=== PATIENT | male | born 1950 | race Caucasian/White ===

== ENCOUNTER 2017-09-04 16:08 | Emergency (ER) | payer OTHER ==
[~2017-09-04] VITALS: Ht 170.2 cm; Wt 90.0 kg
[~2017-09-04 16:08] MED LIST: ALPR0.5T3 PO; ASPI81 PO; CARV3.12 PO; DIGO0.12 PO; FURO20 PO; K-TA10TA5 PO; LISI-360 PO; LOVA10TA PO; PERC10TA27 PO
[2017-09-04 16:10] VITALS: BP 134/76; PULSE 89; RESP 18; TEMP 97.8; O2SAT 95
[2017-09-04] MEDS ORDERED: LISI-519 PO (17:18)
[2017-09-04] MEDS ORDERED: ASPI81CH6 CHEW (17:18)
[2017-09-04] MEDS ORDERED: ALPR.5 PO (17:18)
[2017-09-04] MEDS ORDERED: APIX5TAB PO (17:18)
[2017-09-04] MEDS ORDERED: ALLO100T PO (17:18)
[2017-09-04] MEDS ORDERED: K-TA10TA PO (17:18)
[2017-09-04] MEDS ORDERED: LOVA10TA PO (17:18)
[2017-09-04] MEDS ORDERED: DIGO0.12 PO (17:18)
[2017-09-04] MEDS ORDERED: PERC10TA27 PO (17:18)
[2017-09-04] MEDS ORDERED: FURO1TAB62 PO (17:18)
[2017-09-04] MEDS ORDERED: CARV3.125 PO (17:18)
[2017-09-04] MEDS ORDERED: SODIUM CHLORIDE 0.9% FLUSH 10 ML FLUSH IVF PRN (17:30)
[2017-09-04 17:39] LABS: AUTOMATED NEUTROPHIL # 6.9 TH/MM3 (1.8-7.7); BASOPHIL % 0.5 % (0.0-2.0); EOSINOPHIL # 0.3 TH/MM3 (0-0.4); EOSINOPHIL % 2.7 % (0.0-4.0); HEMATOCRIT 40.2 % (39.0-51.0); HEMO FLAGS DIFF FINAL; LYMPH % 19.1 % (9.0-44.0); LYMPHOCYTE # 1.9 TH/MM3 (1.0-4.8); MEAN CORPUSCULAR HEMOGLOBIN 30.6 PG (27.0-34.0); MEAN CORPUSCULAR HGB CONC 34.4 % (32.0-36.0); NEUT % 69.7 % (16.0-70.0); PLATELET COUNT 170 TH/MM3 (150-450); RED BLOOD COUNT 4.52 MIL/MM3 (4.50-5.90); RED CELL DISTRIBUTION WIDTH 13.9 % (11.6-17.2); WHITE BLOOD COUNT 9.9 TH/MM3 (4.0-11.0)
[2017-09-04 17:46] LABS: APTT (PATIENT) 26.4 SEC (24.3-30.1)
[2017-09-04 17:55] LABS: ANION GAP 9 MEQ/L (5-15); BICARBONATE 27.3 MEQ/L (21.0-32.0); BLOOD UREA NITROGEN 28 MG/DL (7-18); CHLORIDE 102 MEQ/L (98-107); GLOMERULAR FILTRATION RATE 45 ML/MIN (>89); MAGNESIUM 2.7 MG/DL (1.5-2.5); POTASSIUM 4.4 MEQ/L (3.5-5.1); SODIUM (NA) 138 MEQ/L (136-145)
[2017-09-04 17:59] LABS: CREATINE KINASE 142 U/L (39-308)
[2017-09-04 18:11] LABS: CKMB 2.4 NG/ML (0.5-3.6)
--- NOTE | 2017-09-04 18:18 | RADRPT ---
EXAM DATE/TIME: 09/04/2017 17:55 [place] COMPARISON: CHEST SINGLE AP, December 09, 2015, 13:03. INDICATIONS : Chest pain since this afternoon. MEDICAL HISTORY : None. SURGICAL HISTORY : CABG. ENCOUNTER: Initial ACUITY: 1 day PAIN SCORE: 2/10 LOCATION: Bilateral chest FINDINGS: A single AP portable erect view of the chest demonstrates the lungs to be symmetrically aerated witho ut evidence of mass, infiltrate or effusion. The cardiomediastinal contours are unremarkable. [place] us structures are intact. The left subclavian AV sequential transvenous pacer remains in place with t he defibrillator lead. The patient is again noted to be status post median sternotomy. CONCLUSION: Stable appearance with no acute cardiopulmonary disease. James Lobo MD on September 04, 2017 at 18:15 Board Certified Radiologist. This report was verified electronically.
--- NOTE | 2017-09-04 19:35 | PD ---
Physical Exam Narrative Received sign out to follow up [employer] interrogation of defibrillator. 66yo M with ischemic heart disease s/p AICD came to ED for evaluation after AICD firing while fishing today. Pt denies any chest pain, sob, n/v, abdominal pain, focal weakness or numbness. Pt has been observed in the ED without any symptoms. Labs reviewed, no leukocytosis. H/H normal. Troponin negative. Magnesium 2.7. K: 4.4. BUN/creatinine elevated but at baseline. [employer] came to interrogate the AICD and found that it fired appropriately because he had an episode of tachycardia at 261bpm. I discussed with classifier tender Dr. Powell who is covering Dr. Manuel and he agrees that pt can follow up with Dr. Manuel's office tomorrow. Return precautions given. Data Data Last Documented VS Vital Signs Date Time Temp Pulse Resp B/P (MAP) Pulse Ox O2 Delivery O2 Flow Rate FiO2 09/04/17 21:06 09/04/17 17:39 Room Air 09/04/17 16:10 97.8 89 18 95 Orders Orders Electrocardiogram (09/04/17 ) Basic Metabolic Panel (Bmp) (09/04/17 17:19) Ckmb (Isoenzyme) Profile (09/04/17 17:19) Complete Blood Count With Diff (09/04/17 17:19) Magnesium (Mg) (09/04/17 17:19) Prothrombin Time / Inr (Pt) (09/04/17 17:19) Act Partial Throm Time (Ptt) (09/04/17 17:19) Troponin I (09/04/17 17:19) Chest, Single Ap (09/04/17 17:19) Ecg Monitoring (09/04/17 17:19) Bilateral Bp Monitoring (09/04/17 17:19) Iv Access Insert/Monitor (09/04/17 17:19) Oximetry (09/04/17 17:19) Oxygen Administration (09/04/17 17:19) Sodium Chloride 0.9% Flush (Ns Flush) (09/04/17 17:30) CKMB (09/04/17 17:25) CKMB% (09/04/17 17:25) Ed Discharge Order (09/04/17 20:38) Labs Laboratory Tests Test 09/04/17 17:25 White Blood Count 9.9 TH/MM3 Red Blood Count 4.52 MIL/MM3 Hemoglobin 13.8 GM/DL Hematocrit 40.2 % Mean Corpuscular Volume 89.0 FL Mean Corpuscular Hemoglobin 30.6 PG Mean Corpuscular Hemoglobin Concent 34.4 % Red Cell Distribution Width 13.9 % Platelet Count 170 TH/MM3 Mean Platelet Volume 9.2 FL Neutrophils (%) (Auto) 69.7 % Lymphocytes (%) (Auto) 19.1 % Monocytes (%) (Auto) 8.0 % Eosinophils (%) (Auto) 2.7 % Basophils (%) (Auto) 0.5 % Neutrophils # (Auto) 6.9 TH/MM3 Lymphocytes # (Auto) 1.9 TH/MM3 Monocytes # (Auto) 0.8 TH/MM3 Eosinophils # (Auto) 0.3 TH/MM3 Basophils # (Auto) 0.0 TH/MM3 CBC Comment DIFF FINAL Differential Comment Prothrombin Time 11.0 SEC Prothromb Time International Ratio 1.0 RATIO Activated Partial Thromboplast Time 26.4 SEC Blood Urea Nitrogen 28 MG/DL Creatinine 1.55 MG/DL Random Glucose 83 MG/DL Calcium Level 8.9 MG/DL Magnesium Level 2.7 MG/DL Sodium Level 138 MEQ/L Potassium Level 4.4 MEQ/L Chloride Level 102 MEQ/L Carbon Dioxide Level 27.3 MEQ/L Anion Gap 9 MEQ/L Estimat Glomerular Filtration Rate 45 ML/MIN Total Creatine Kinase 142 U/L Creatine Kinase MB 2.4 NG/ML Troponin I 0.05 NG/ML [facility] Supervised Visit with MARQUISE: No Diagnosis Primary Impression: AICD discharge Patient Instructions: General Instructions Departure Forms: Tests/Procedures Additional Instruction: Please follow up with Dr. Manuel's office tomorrow. Return to the ED if symptoms worsen. Med/Other Pt SpecificInfo: No Change to Meds Disposition: 01 DISCHARGE HOME Condition: Stable Waleska Carcamo Sep 04, 2017 19:35
--- NOTE | 2017-09-04 19:45 | PD ---
HPI Chief Complaint: Cardiac Complaint Time Seen by Provider: 17:09 Travel History International Travel<30 days: No Contact w/Intl Traveler<30days: No Traveled to known affect area: No History of Present Illness HPI 66-year-old male came to the emergency room with history of his AICD firing. Patient says this happened at around 2:30 this evening. Patient was fishing [place] the ocean when this happened. He fell on the deck of his boat. He did not lose consciousness. His was there as well. As per her his color was little pale. Patient does not feel this coming. No history of chest pain. Patient says that he has this defibrillator placed in 2011. He had been shocked once before in December 2015. He went to see his behavioral specialist [place]. But his behavioral specialist was out of town and his PA recommended that she should go to the emergency room. Currently patient is feeling okay. He knows that he has a weak heart. Vital signs are stable. [facility] Past Medical History Narrative Medical List of his past medical, surgical, social and family history is reviewed from the nursing note. Autoimmune Disease: No Blood Disorders: No Anxiety: Yes Depression: No Cancer: Yes (COLON) Cardiac Catheterization: Yes Cardiomyopathy: Yes (EF 30%) Cardiovascular Problems: Yes High Cholesterol: Yes Chest Pain: Yes Coronary Artery Disease: Yes Diabetes: No Diminished Hearing: No Endocrine: No Gastrointestinal Disorders: Yes (COLON CANCER) Glaucoma: No Genitourinary: No Hepatitis: No Hiatal Hernia: No Hypertension: Yes Immune Disorder: No Musculoskeletal: Yes Neurologic: No Psychiatric: Yes (PTSD - [facility]) Reproductive: No Respiratory: No Integumentary: No Immunizations Current: Yes Myocardial Infarction: Yes Thyroid Disease: No Triglycerides - High: Yes PNEUMOCCOCAL Vaccine (Year): 2 Past Surgical History Abdominal Surgery: Yes ([facility]ON RESECTION) Cardiac Surgery: Yes Coronary Artery Bypass Graft: Yes (PT HAS EF OF 30%) Coronary Stent: Yes Genitourinary Surgery: No Thoracic Surgery: Yes Other Surgery: Yes Social History Alcohol Use: No Tobacco Use: No Substance Use: No Allergies-Medications (Allergen,Severity, Reaction): Coded Allergies: No Known Allergies (Verified , 06/10/15) Comments No known drug allergies. Reported Meds & Prescriptions Reported Meds & Active Scripts Active Reported Percocet (Oxycodone-Acetaminophen) 10-325 mg Tab 1 Tab PO Q6H PRN Xanax (Alprazolam) 0.5 Mg Tab 0.5 Mg PO Q6H PRN K-Tab (Potassium Chloride) 10 Meq Tab 10 Meq PO DAILY Eliquis (Apixaban) Unknown Strength Tab Unknown Dose PO BID Lovastatin 10 Mg Tab 10 Mg PO DAILY Lisinopril 5 Mg Tab 5 Mg PO DAILY Lasix (Furosemide) 20 Mg Tab 10 Mg PO DAILY Allopurinol 100 Mg Tab 100 Mg PO DAILY Digoxin 0.125 Mg Tab 0.125 Mg PO DAILY Coreg (Carvedilol) 3.125 Mg Tab 3.125 Mg PO BID Aspirin Low Dose (Aspirin) 81 Mg Chew 81 Mg CHEW DAILY Narrative Medication List of his home medications reviewed from the nursing note. Review of Systems Except as stated in HPI: all other systems reviewed are Neg Physical Exam Narrative GENERAL: Awake, alert, anxious SKIN: Focused skin assessment warm/dry. HEAD: Atraumatic. Normocephalic. EYES: Pupils equal and round. No scleral icterus. No injection or drainage. ENT: No nasal bleeding or discharge. Mucous membranes pink and moist. NECK: Trachea midline. No JVD. CARDIOVASCULAR: Regular rate and rhythm. No murmur appreciated. RESPIRATORY: No accessory muscle use. Clear to auscultation. Breath sounds equal bilaterally. GASTROINTESTINAL: Abdomen soft, non-tender, nondistended. Hepatic and splenic margins not palpable. MUSCULOSKELETAL: No obvious deformities. No clubbing. No cyanosis. No edema. NEUROLOGICAL: Awake and alert. No obvious cranial nerve deficits. Motor grossly within normal limits. Normal speech. PSYCHIATRIC: Appropriate mood and affect; insight and judgment normal. Data Data Last Documented VS Vital Signs Date Time Temp Pulse Resp B/P (MAP) Pulse Ox O2 Delivery O2 Flow Rate FiO2 09/04/17 21:06 09/04/17 17:39 Room Air 09/04/17 16:10 97.8 89 18 95 Orders Orders Electrocardiogram (09/04/17 ) Basic Metabolic Panel (Bmp) (09/04/17 17:19) Ckmb (Isoenzyme) Profile (09/04/17 17:19) Complete Blood Count With Diff (09/04/17 17:19) Magnesium (Mg) (09/04/17 17:19) Prothrombin Time / Inr (Pt) (09/04/17 17:19) Act Partial Throm Time (Ptt) (09/04/17 17:19) Troponin I (09/04/17 17:19) Chest, Single Ap (09/04/17 17:19) Ecg Monitoring (09/04/17 17:19) Bilateral Bp Monitoring (09/04/17 17:19) Iv Access Insert/Monitor (09/04/17 17:19) Oximetry (09/04/17 17:) Oxygen Administration (09/04/17:) Sodium Chloride 0.9% Flush (Ns Flush) (09/04/17 17:30) CKMB (09/04/17 17:) CKMB% (09/04/17:25) Ed Discharge Order (09/04/17 20:38) Labs Laboratory Tests Test 09/04/17 17: White Blood Count 9.9 TH/MM3 Red Blood Count 4.52 MIL/MM3 Hemoglobin 13.8 GM/DL Hematocrit 40.2 % Mean Corpuscular Volume 89.0 FL Mean Corpuscular Hemoglobin 30.6 PG Mean Corpuscular Hemoglobin Concent 34.4 % Red Cell Distribution Width 13.9 % Platelet Count 170 TH/MM3 Mean Platelet Volume 9.2 FL Neutrophils (%) (Auto) 69.7 % Lymphocytes (%) (Auto) 19.1 % Monocytes (%) (Auto) 8.0 % Eosinophils (%) (Auto) 2.7 % Basophils (%) (Auto) 0.5 % Neutrophils # (Auto) 6.9 TH/MM3 Lymphocytes # (Auto) 1.9 TH/MM3 Monocytes # (Auto) 0.8 TH/MM3 Eosinophils # (Auto) 0.3 TH/MM3 Basophils # (Auto) 0.0 TH/MM3 CBC Comment DIFF FINAL Differential Comment Prothrombin Time 11.0 SEC Prothromb Time International Ratio 1.0 RATIO Activated Partial Thromboplast Time 26.4 SEC Blood Urea Nitrogen 28 MG/DL Creatinine 1.55 MG/DL Random Glucose 83 MG/DL Calcium Level 8.9 MG/DL Magnesium Level 2.7 MG/DL Sodium Level 138 MEQ/L Potassium Level 4.4 MEQ/L Chloride Level 102 MEQ/L Carbon Dioxide Level 27.3 MEQ/L Anion Gap 9 MEQ/L Estimat Glomerular Filtration Rate 45 ML/MIN Total Creatine Kinase 142 U/L Creatine Kinase MB 2.4 NG/ML Troponin I 0.05 NG/ML MDM Medical Decision Making Medical Screen Exam Complete: Yes Emergency Medical Condition: Yes Medical Record Reviewed: Yes Interpretation(s) Twelve-lead EKG was reviewed by me. Normal sinus rhythm, atrial paced, normal axis, nonspecific ST-T wave changes. Heart rate of 73 bpm. Differential Diagnosis AICD fired, electrolyte abnormality, ACS Narrative Course 7:43 PM blood test results of back and within acceptable limit. Patient does have some renal insufficiency. [employer] representative has been called to come and interrogate the device. The case has been signed over to the oncoming ER physician. Procedures EKG Prior to Arrival: Yes Diagnosis Primary Impression: AICD discharge Additional Impression: Renal insufficiency Hollie Delacruz MD Sep 04, 2017 19:45
--- NOTE | 2017-09-05 12:08 | EKG ---
Date Performed: 09/04/2017 Time Performed: 16:27:05 PTAGE: 66 years EKG: ELECTRONIC ATRIAL PACEMAKER MODERATE INTRAVENTRICULAR CONDUCTION DELAY NONSPECIFIC T-WAVE A BNORMALITY Compared to previous tracing atrial pacing is now seen ABNORMAL ECG PREVIOUS TRACING : 02/26/2016 10.44 DOCTOR: Mateo Linder Interpretating Date/Time 09/05/2017 12:07:21
== END 2017-09-04 21:20 | disposition home or self-care (01) ==
LOC: NEPE 16:08
DX: T82.897A Other specified complication of cardiac prosthetic devices, implants and grafts, initial encounter (principal); N28.9 Disorder of kidney and ureter, unspecified; R00.0 Tachycardia, unspecified; R94.31 Abnormal electrocardiogram [ECG] [EKG]; I10 Essential (primary) hypertension; E78.5 Hyperlipidemia, unspecified; I25.2 Old myocardial infarction; Z95.1 Presence of aortocoronary bypass graft; Z86.79 Personal history of other diseases of the circulatory system; Z86.59 Personal history of other mental and behavioral disorders; Z87.19 Personal history of other diseases of the digestive system; Z85.038 Personal history of other malignant neoplasm of large intestine; Z87.39 Personal history of other diseases of the musculoskeletal system and connective tissue
CPT/HCPCS: 71010; 80048; 82550; 82552; 83735; 84484; 85025; 85610; 85730; 93005; 99285